=== PATIENT | female | born 1940 | race Two or more races ===

== ENCOUNTER 2018-08-18 00:11 | Emergency (ER) | payer OTHER ==
[~2018-08-18] VITALS: Ht 157.5 cm; Wt 86.2 kg
[~2018-08-18 00:11] MED LIST: ASPIR 8181 MG PO; ATENOLOL25 MG PO; HYZAAR 100-251 UDTAB PO; NORVASC5 MG PO; PRILOSEC20 MG PO; RANITIDINE HCL150 M1 PO; SIMVASTATIN20 MG PO; TENORMIN50 M1 PO
[2018-08-18] MEDS ORDERED: PROTONIX40 MG PO (10:29)
[2018-08-18] MEDS ORDERED: CIPRO500 MG PO (10:29)
[2018-08-18] MEDS ORDERED: TIGAN300 MG PO (10:31)
[2018-08-18] MEDS ORDERED: ANTI-DIARRHEAL2 MG PO (10:32)
== END 2018-08-18 13:39 | disposition home or self-care (01) ==
LOC: ER 00:11
DX: A04.8 Other specified bacterial intestinal infections (principal); D72.829 Elevated white blood cell count, unspecified

== ENCOUNTER 2019-02-04 20:57 | Emergency (ER) | payer OTHER ==
[~2019-02-04] VITALS: Ht 157.5 cm; Wt 82.1 kg
[~2019-02-04 20:57] MED LIST changes: +ANTI-DIARRHEAL2 MG PO; +CIPRO500 MG PO; +PROTONIX40 MG PO; +TIGAN300 MG PO
[2019-02-05] MEDS ORDERED: INTESTINEX680 M1 PO (01:50)
[2019-02-05] MEDS ORDERED: PEPCID AC20 MG PO (01:50)
== END 2019-02-05 02:31 | disposition home or self-care (01) ==
LOC: ER 20:57
DX: K52.89 Other specified noninfective gastroenteritis and colitis (principal)

== ENCOUNTER 2019-02-17 14:17 | Emergency (ER) | payer OTHER ==
[~2019-02-17] VITALS: Ht 157.5 cm; Wt 78.9 kg
[~2019-02-17 14:17] MED LIST changes: +INTESTINEX680 M1 PO; +PEPCID AC20 MG PO
[2019-02-18] MEDS ORDERED: INTESTINEX680 M1 PO (02:01)
[2019-02-18] MEDS ORDERED: LEVSIN/SL0.125 MG SL (02:01)
[2019-02-18] MEDS ORDERED: MOBIC15 MG PO (02:02)
== END 2019-02-18 02:10 | disposition home or self-care (01) ==
LOC: ER 14:17
DX: K52.89 Other specified noninfective gastroenteritis and colitis (principal); S20.212A Contusion of left front wall of thorax, initial encounter; S20.211A Contusion of right front wall of thorax, initial encounter; W18.09XA Striking against other object with subsequent fall, initial encounter; Y93.89 Activity, other specified; Y92.89 Other specified places as the place of occurrence of the external cause; Y99.8 Other external cause status

== ENCOUNTER 2019-06-13 04:50 | Day surgery (SDC) | payer OTHER ==
[~2019-06-13 04:50] MED LIST changes: +LEVSIN/SL0.125 MG SL; +LIPIT PO; +MOBIC15 MG PO; +PRILOSEC OTC20 MG PO
[2019-06-14] MEDS ORDERED: ATORVASTATIN CA10 MG PO (08:22)
[2019-06-14] MEDS ORDERED: OMEPRAZOLE20 MG PO (08:23)
[2019-06-14] MEDS ORDERED: OLANZAPINE5 MG PO (08:23)
[2019-06-14] MEDS ORDERED: FAMOTIDINE20 MG PO (08:23)
[2019-06-14] MEDS ORDERED: CLONAZEPAM0.5 MG PO (08:23)
[2019-06-14] MEDS ORDERED: SERTRALINE HCL100 MG PO (08:24)
== END 2019-06-14 08:00 | disposition home or self-care (01) ==
LOC: CIR.AMB 04:50 → SURG 10:00 → O/R 10:00 → SURG 12:51 → O/R 12:51 → SURG 13:33 → CIR.AMB 06-14 08:00 → SURG 06-14 10:43 → O/R 06-14 10:43
DX: K80.10 Calculus of gallbladder with chronic cholecystitis without obstruction (principal)

== ENCOUNTER 2021-09-19 00:34 | Inpatient (IN) | payer OTHER ==
[~2021-09-19] VITALS: Ht 157.5 cm; Wt 81.6 kg
[~2021-09-19 00:34] MED LIST changes: +ATORVASTATIN CA10 MG PO; +CLONAZEPAM0.5 MG PO; +FAMOTIDINE20 MG PO; +OLANZAPINE5 MG PO; +OMEPRAZOLE20 MG PO; +SERTRALINE HCL100 MG PO
[2021-09-19] MEDS ORDERED: AZITHROMYCIN250 MG (00:47)
--- NOTE | 2021-09-19 00:55 | NUR ---
PACIENTE FEMENINA, ALERTA Y ORIENTADA, LLEGA EN SILLON DE ILIR ACOM[place] DE [facility] H[place]. REFIERE VARIOS EPIDOSIOS DE DIARREAS EN EL EDILIA DE HOY. PACIENTE REFIERE SINTOMAS OREILLY ESTADO PRESENTE POR MAS DE 3 WILD. SE MIDE S/V. SE UBICA EN AREA DE OBSERVACION. PACIENTE NO REFIERE DOLOR AL MOMENTO DEL TRIAGE.
--- NOTE | 2021-09-19 02:27 | NUR ---
SE ORIENTA AL PACIENTE SOBRE EL TX. SE EXTRAEN MUESTRAS DE CAROLYN BAJO MEDIDA ASEPTICAS SE ROTULAN Y ENVIAN AL LABORATORIO SE CANALIZA Y ADMINISTRA MEDICAMENTOS ULISES ORDEN MEDICA. SE ENTREGA FRASCO PARA FEKAL Y SE ORIENTA A COLECTAR LA MUESTRA.
--- NOTE | 2021-09-19 06:12 | NUR ---
PENDIENTE CT ABDOMEN Y PELVICO SIN CONTRASTE.
--- NOTE | 2021-09-19 06:42 | NUR ---
LE REALIZARON CT ORDENADO POR
--- NOTE | 2021-09-19 07:22 | NUR ---
SE RECIBE PTE FEMENINA DE 81 YRS ALERTA CONCIENTE Y TRANQUILA EN WANDA CON BARRANDAS ELEVADA. PTE SE OBSERVA CON H/L PATENTE Y BRADLEY DE EDEMA. SE MANTIENE BAJO OBSERVACION.
== END 2021-09-22 15:00 | disposition home or self-care (01) | DRG 392 ==
LOC: ER 00:34 → MEDI 10:49 → SEC-K 10:49 → MEDJ 17:37 → MEDI 09-20 02:10
PROVIDERS: ADMIT Internal Medicine; ATTEND Internal Medicine
PROC: BW21ZZZ Computerized Tomography (CT Scan) of Abdomen and Pelvis (ICD-10-PCS; principal; 2021-09-19)
DX: K52.89 Other specified noninfective gastroenteritis and colitis (principal); N17.8 Other acute kidney failure; E86.0 Dehydration; E87.8 Other disorders of electrolyte and fluid balance, not elsewhere classified; E78.49 Other hyperlipidemia; I10 Essential (primary) hypertension; Z85.3 Personal history of malignant neoplasm of breast

== ENCOUNTER 2021-12-22 08:00 | Outpatient (CLI) | payer OTHER ==
[~2021-12-22 08:00] MED LIST changes: +AZITHROMYCIN250 MG
== END 2021-12-22 08:30 | disposition home or self-care (01) ==
LOC: PPH VACUNA 08:00
PROVIDERS: ATTEND Emergency Medicine Pediatric Emergency Medicine
DX: Z23 Encounter for immunization (principal)

== ENCOUNTER 2023-07-17 10:13 | Emergency (ER) | payer OTHER ==
[~2023-07-17] VITALS: Ht 162.6 cm; Wt 81.6 kg
[~2023-07-17 10:13] MED LIST changes: +PRILOSEC OTC20 MG
[2023-07-17] MEDS ORDERED: DICLOFENAC SODI75 MG PO (11:49)
== END 2023-07-17 12:05 | disposition home or self-care (01) ==
LOC: ER 10:13
DX: M79.672 Pain in left foot (principal)
CPT/HCPCS: 73660; 96372; 99283; J1885

== ENCOUNTER 2023-08-22 03:30 | Emergency (ER) | payer OTHER ==
[~2023-08-22] VITALS: Ht 157.5 cm; Wt 81.6 kg
[~2023-08-22 03:30] MED LIST changes: +DICLOFENAC SODI75 MG PO
[2023-08-22 04:53] LABS: HEMOGLOBIN 12.1 g/dL (12.0-15.00); MEAN CORPUSCULAR HEMOGLOBIN 28.9 pg (27.00-32.0); MEAN CORPUSCULAR HGB CONC 33.6 g/dl (32.0-36.0); PLATELET COUNT 239 K/uL (150-450); RED BLOOD COUNT 4.18 M/uL (4.00-6.00); RED CELL DISTRIBUTION WIDTH 15.2 % (11.5-14.5)
[2023-08-22 05:19] LABS: CALCIUM 8.8 mg/dL (8.5-10.1); CREATININE SERUM 0.96 mg/dL (0.55-1.02); GFR 55.78
[2023-08-22 05:23] LABS: POTASSIUM 2.96 mEq/L (3.5-5.1)
== END 2023-08-22 07:31 | disposition home or self-care (01) ==
LOC: ER 03:30
DX: I10 Essential (primary) hypertension (principal)

== ENCOUNTER 2023-08-25 00:27 | Emergency (ER) | payer OTHER ==
[~2023-08-25] VITALS: Ht 160 cm; Wt 81.6 kg
[2023-08-25 01:41] LABS: ALBUMIN 3.7 gm/dL (3.4-5.0); BILIRUBIN TOTAL 0.44 mg/dL (0.3-1.2); GFR 53.21; GLOBULINA 4.4 G/DL (2.4-3.5); TOTAL PROTEIN 8.1 gm/dL (6.4-8.2)
[2023-08-25 01:43] LABS: POTASSIUM 2.6 mEq/L (3.5-5.1)
[2023-08-25 02:19] LABS: PH,URINE 7.5 (5.0-8.0); URINE APPEARANCE Clear; URINE BILIRRUBIN Negative (NEGATIVE); URINE COLOR Yellow; URINE GLUCOSE Negative (NEGATIVE); URINE LEUKOCYTE Trace; URINE NITRATE Negative; URINE PROTEIN Negative (NEGATIVE); URINE UROBILINOGEN 0.2 E.U./dl
[2023-08-25 02:23] LABS: URINE BACTERIA 45.3 uL (0.0-1933); URINE EPITHELIAL CELLS 3.2 uL (0.0-38.8); URINE WBC 5.8 uL (0.0-23.2)
[2023-08-25 02:27] LABS: URINE BLOOD TRACE
[2023-08-25 16:32] LABS: CALCIUM 9.3 mg/dL (8.5-10.1); CREATININE SERUM 0.8 mg/dL (0.55-1.02); GFR 68.84
[2023-08-25 16:41] LABS: POTASSIUM 2.91 mEq/L (3.5-5.1)
== END 2023-08-25 18:02 | disposition home or self-care (01) ==
LOC: ER 00:27
PROVIDERS: General Practice
DX: I10 Essential (primary) hypertension (principal)

== ENCOUNTER 2025-07-25 23:26 | Emergency (ER) | payer OTHER ==
[~2025-07-25] VITALS: Ht 160 cm; Wt 82.6 kg
[2025-07-25] MEDS ORDERED: NORVASC10 MG PO (23:39)
[2025-07-26] MEDS ORDERED: FAMOTIDINE/PF 20 MG/2 ML VIAL IV PUSH STA (00:43)
[2025-07-26] MEDS ORDERED: ONDANSETRON HCL 2 MG/ML VIAL IV STA (00:43)
[2025-07-26] MEDS ORDERED: 0.9 % SODIUM CHLORIDE 1,000 ML IV ONE (00:45)
[2025-07-26] MEDS ORDERED: ONDANSETRON HCL 2 MG/ML VIAL ONE (00:53)
[2025-07-26] MEDS ORDERED: FAMOTIDINE/PF 20 MG/2 ML VIAL ONE (00:53)
[2025-07-26 01:39] LABS: BASO % 0.5 % (0.1-1.2); EOS # 0.08 (0.04-0.54); EOS % 0.7 % (0.7-7.0); LYMPH # 1.57 (1.18-3.74); LYMPH % 13.3 % (19.3-53.1); MEAN PLATELET VOLUME 11.70 fl (9.4-12.4); MONO # 0.54 (0.24-0.82); MONO % 4.6 % (4.7-12.5); NEUT # 9.49 (1.56-6.13); NEUT % 80.6 % (34.0-71.1); RED CELL DISTRIBUTION WIDTH 13.4 % (11.6-14.4)
[2025-07-26 03:37] LABS: ALT/SGPT 20.0 U/L (12-78); AST/SGOT 20.0 U/L (15-37); BILIRUBIN TOTAL 0.5 mg/dL (0.3-1.2); BUN CREA RATIO 21.0 (7.0-25.0); CREATININE SERUM 0.92 mg/dL (0.55-1.02); GFR 58.44; GLOBULINA 3.8 G/DL (2.4-3.5); GLUCOSE FASTING 122.0 mg/dL (65-100); OSMOLALITY SERUM 283.0 MOSM/KG (275-295)
[2025-07-26 04:26] LABS: URINE APPEARANCE Clear; URINE BILIRRUBIN Negative (NEGATIVE); URINE BLOOD Trace; URINE COLOR Yellow; URINE GLUCOSE Negative (NEGATIVE); URINE KETONE Negative (NEGATIVE); URINE LEUKOCYTE Small; URINE NITRATE Negative; URINE PROTEIN Trace (NEGATIVE); URINE UROBILINOGEN 0.2 E.U./dl
[2025-07-26 04:29] LABS: URINE EPITHELIAL CELLS 15.6 uL (0.0-38.8); URINE RBC 11.8 uL (0.0-20.8); URINE WBC 196.4 uL (0.0-23.2)
[2025-07-26 04:41] LABS: URINE BACTERIA > 9821.5 uL (0.0-1933); URINE CAST 0.29 uL (0.0-1.40)
[2025-07-26] MEDS ORDERED: ONDANSETRON ODT4 MG PO (06:17)
[2025-07-26] MEDS ORDERED: LEVSIN/SL0.125 MG SL (06:17)
== END 2025-07-26 07:00 ==
LOC: ER 23:26
PROVIDERS: General Practice
DX: K29.70 Gastritis, unspecified, without bleeding (principal); R11.10 Vomiting, unspecified; R10.9 Unspecified abdominal pain; I10 Essential (primary) hypertension
CPT/HCPCS: 36415; 96365; 96366; 99282; J2405; J3490; J7030